=== PATIENT | female | born 1965 | race Caucasian/White ===

== ENCOUNTER → 2017-01-23 | Outpatient (CLI) | payer OTHER ==
[~2017-01-23] MED LIST: ALEN5TAB2 PO; ATOR10TA88 PO; BUPR-79 PO; CYM/30 PO; DTRSR/10 PO; HYDR25TA5 PO; HYOS1TAB PO; LEVO75TA5 PO; OMEP40CA41 PO; PROM25TA9 PO; TRAZ300T PO
== END | disposition home or self-care (01) ==
LOC: C.RDSM 15:16
PROVIDERS: ATTEND Physical Medicine & Rehabilitation
DX: M48.06 Spinal stenosis, lumbar region (principal)

== ENCOUNTER → 2017-02-22 | Day surgery (SDC) | payer OTHER ==
[2017-01-25 11:51] VITALS: Ht 162.6 cm; Wt 95.5 kg
[~2017-02-22] VITALS: Ht 162.6 cm; Wt 95.5 kg
[~2017-02-22] MED LIST changes: +ATOR10TA82 PO; -ATOR10TA88 PO; +BUPIVACAINE 0.25% 2.5MG/ML PF 10 ML VIAL INFIL ONE; +LIDOCAINE HCL 1% MPF 5 ML VIAL ONE
--- NOTE | 2017-02-22 14:15 | History & Physical Bridge - [place] ---
H&P Re-Evaluation Bridge Note: I have examined the patient, reviewed the History & Physical and in the interval since the performance of the History & Physical I have noted the following changes of clinical significance: No changes noted. Plan to proceed with a bilateral L4-5 medial branch block
[2017-02-22 14:46] VITALS: BP 125/84; PULSE 98; TEMP 37.5; O2SAT 99
--- NOTE | 2017-02-22 14:53 | Discharge Instructions ---
Discharge Instructions Date of Service Feb 22, 2017. Visit Reason for Visit: Low Back Pain Discharge Discharge Diagnosis / Problem: lpw back pain Discharge Goals Goal(s): Decrease discomfort, Improve function Activity Recommendations Activity Limitations: resume your previous activity Anesthesia . Post Anesthesia Instructions: If you have had General Anesthesia or IV Sedation: * Do not drive today. * Resume driving when surgeon permits. * Do not make important decisions or sign legal documents today. * Call surgeon for: 1. Temperature elevations greater than 101 degrees F. 2. Uncontrollable pain. 3. Excessive bleeding. 4. Persistent nausea and vomiting. 5. Medication intolerance (nausea, vomiting or rash). * For nausea and vomiting use only clear liquids such as: tea, soda, bouillon until nausea subsides, then gradually increase diet as tolerated. * If you have any concerns or questions, call your surgeon's office. If physician is unavailable and it is an emergency, call 911 or go to the nearest emergency room. . Diet Recommendations Recommended Home Diet: resume previous diet Procedures Procedures Performed: Bilateral L4-5 Medial Branch Block Pending Studies Studies pending at discharge: no Medical Emergencies . Who to Call and When: Medical Emergencies: If at any time you feel your situation is an emergency, please call 911 immediately. . Non-Emergent Contact Non-Emergency issues call your: Specialist . . "Provider Documentation" section prepared by Sancho Avalos. .
--- NOTE | 2017-02-22 15:07 | OPERATIVE REPORT ---
DATE OF OPERATION: 02/22/2017 PREOPERATIVE DIAGNOSIS: Chronic low back pain, lumbar facet arthropathy. POSTOPERATIVE DIAGNOSIS: Same. PROCEDURE: Bilateral L4-L5 medial branch blocks under fluoroscopic guidance. SURGEON: Dr. Sancho Avalos. INDICATIONS: The patient is a 51-year-old white female who presents with chronic low back pain. She has not responded to conservative measures. She has been treated in the past with the epidurals and narcotics as well as Lyrica and gabapentin did not relieve her pain. I believe her pain is mediated from the facet joints. She has a questionable spondylolisthesis of her lower extremities with suspected osteoarthritic changes into the facet area. She presents today for medial branch blocks to confirm that the facets bilaterally are the pain generators of her chronic low back pain. PHYSICAL EXAMINATION: Pleasant female seated comfortably. She has point tenderness to palpation of her facet joints, worse with extension, and extension rotation. She has normal lower extremity strength, negative seated straight leg raises, intact sensation distally at the L4, L5, S1 dermatomes. Maneuvers, negative seated straight leg raises. CONSENT: Verbal and written consent was obtained from the patient. Risks and benefits were reviewed. Risks include but are not limited to abscess and allergic reaction. The patient wishes to proceed. PROCEDURE: The patient was taken back into the special procedures room of the [facility] where she was maintained in a prone position. Backside was cleansed with Betadine x3 and a dry sterile dressing was applied. Fluoroscope was used to identify the L4 transverse process junction and the L5 transverse process junction on the left. Overlying skin was anesthetized with 2 mL of 1% lidocaine at each site. She then underwent placement of a 25 gauge 3.5 inch needle at each site contacting bone and was injected after negative aspiration with 1 mL of bupivacaine 0.25%. The right L4 transverse process junction and the right L5 transverse process junction then were fluoroscopically identified. Overlying skin was anesthetized with 2 mL of lidocaine 1% at each site with a 25 gauge 1.5-inch needle. A 25 gauge 3.5 inch spinal needle was then directed at each site contacting bone and injected after negative aspiration with bupivacaine 0.25% 1 mL at each site. DISPOSITION: 1. The patient is taken out into the discharge recovery area where she will be discharged home once discharge criteria have been met. 2. Follow up in the [facility] office in 2-4 weeks. I attest to the content of the Intraoperative Record and any orders documented therein. Any exceptio ns are noted below.
== END | disposition home or self-care (01) ==
LOC: X.SURG 12:11
PROVIDERS: ATTEND Physical Medicine & Rehabilitation
DX: M47.816 Spondylosis without myelopathy or radiculopathy, lumbar region (principal)